=== PATIENT | female | born 1975 | race Caucasian/White ===

== ENCOUNTER 2023-05-01 12:39 | Outpatient (CLI) | payer OTHER, SELFPAY ==
--- NOTE | 2023-05-01 13:20 | CRLHL7_ITS ---
For Patients: As a result of the Century Cures Act, medical imaging exams and procedure reports are released immediately into your electronic medical record. You may view this report before your referring provider. If you have questions, please contact your health care provider. BILATERAL SCREENING MAMMOGRAM WITH COMPUTER-AIDED DETECTION AND TOMOSYNTHESIS TECHNIQUE: CC and MLO views were obtained. These mammographic images have been obtained using full-field digital technique. These mammographic images were interpreted with the benefit of computer-aided detection. Breast Tomosynthesis was used in this interpretation. COMPARISON FILM: 12/20/21. FINDINGS: There are scattered areas of fibroglandular density IMPRESSION: There is no radiographic evidence for malignancy. ASSESSMENT: BI-RADS Category 1: Negative RECOMMENDATION: Routine screening mammogram in 1 year. A lay language report of this examination will be provided to the patient. Corbin Damian M.D. Diagnostic Radiologist [email or web address] Transcribed: 12:13 peron nguyen/Dictated by: Corbin Damian MD @ 05/04/2023 11:13:00 AM (Electronically Signed)
== END 2023-05-01 12:40 | disposition home or self-care (01) ==
LOC: MAMMO 12:41
PROVIDERS: PCP Nurse Practitioner Family; Visit Provider Physician Assistant
DX: Z12.31 Encounter for screening mammogram for malignant neoplasm of breast (principal)
CPT/HCPCS: 77063; 77067

== ENCOUNTER 2024-08-17 01:20 | Emergency (ER) | payer OTHER, SELFPAY ==
--- OUTSIDE RECORDS SUMMARY | 2024-08-17 01:22 | XMS_ITS | Clinical Summary ---
Author Organization [facility] Address [place], [place] [address] Care Team Providers Care Consumer Lender Name Role Phone Pcp, No Primary Care Provider Unavailabl e Allergies Active Allergy Reactions Criticality Noted Date Comments Pepper (Genus Capsicum) Throat Swelling/Closing High 04/04/2019 Medications No known medications Active Problems Problem Noted Date Diagnosed Date Pap smear for cervical cancer screening 11/21/19 22 Overview (01/05/2022): 11/2021 NIL/HPV negative Plan: Pap/HPV due 11/2026 02/19/2018 Overview (05/14/2018): Estimated Date of Delivery: 10/06/18 Patient's last menstrual period was 12/30/2017. Last Tdap- 08/01/2010 Last Flu vaccine- 05/13/2018 Glucose (GTT) result- too early No Known Allergies Obstetric History T2 L3 SAB0 TAB0 Ectopic0 Multiple0 Live Births3 # Outcome Date GA Lbr Ricardo/2nd Weight Sex Delivery Anes PTL Lv 5 Current 4 Term 06/12/07 39w0d 2.72 kg (6 lb) F PJ 3 Term 08/26/02 40w0d 3.18 kg (7 lb) M PJ 2 07/23/99 26w0d DEC 1 Create lab flowsheet for OB labs- Component Latest Ref Rng & Units 02/14/2018 02/14/2018 02/14/2018 4:58 PM 4:58 PM 4:58 PM HEMOGLOBIN 12.0 - 16.0 g/dL 12.4 MCV 80 - 100 fL 94 ANTIBODY SCREEN Negative Negative SPECIMEN EXPIRATION DATE/TIME 02/17/18 23:59 RUBELLA IGG ANTIBODY Positive 1.61 HIV-1/HIV-2 ANTIBODY Non-Reactive Non-Reactive ABORH O Rh Positive HBSAG Nonreactive Nonreactive TREPONEMA PALLIDUM Negative Negative HEMOGLOBIN A1C SCREENING <6.4 % 5.3 Past Medical History: Diagnosis Date Allergic rhinitis, cause unspecified Encounter for supervision of other normal , first trimester 02/14/2018 No Significant Past Medical History Past Surgical History: Procedure Laterality Date SECTION Section, x3 in the [place]; 1 in [place] No data on file. 5th Problems (from 02/14/18 to present) No problems associated with this episode. RYAN Marin.....02/19/2018 7:35 AM Encounter for supervision of other normal , first trimester 02/14/2018 Previous section 02/09/2009 Allergic rhinitis, cause unspecified Resolved Problems Problem Noted Date Diagnosed Date Resolved Date Supervision of other normal 02/09/2009 06/30/2016 Ingrowing nail 04/16/2008 06/30/2016 Encounters Date Type Department Care Team Description 08/14/2024 2:50 PM DOG GROOMER Office Visit [facility] [address] [place] [address] Emelyn Segura, SOFI Viral Syndrome 08/14/2024 Travel from Last 3 Months Immunizations Name Administration Dates Next Due COVID-19 vaccine (Lil Monkey Butt 30mcg/0.3mL) P F, MDV 01/15/2021,12/25/2020 Influenza A (H1N1), Inactivated 05/25/2009 Influenza, IIV3 (Age >=3 years) 05/10/2009 Influenza, IIV4 05/13/2018,06/30/2016 Tdap 08/09/2018,08/01/2010 Family History Medical History Relation Name Comments Diabetes Father Good Health Maternal Grandfather Good Health Maternal Grandmother Hypertension Mother Good Health Paternal Grandfather of old age Unknown Paternal Grandmother Cancer-breast No Family History Cancer-colon No Family History Cancer-ovarian No Family History Relation Name Status Comments Father Maternal Grandfather Maternal Grandmother Mother Paternal Grandfather Paternal Grandmother Social History Tobacco Use Types Packs/Day Years Used Date Smoking Tobacco: Never Smokeless Tobacco: Never Tobacco Cessation:Counseling Given: Yes Alcohol Use Standard Drinks/Week Comments No 0 (1 standard drink = 0.6 oz pur e alcohol) PHQ-2 Answer Date Recorded PHQ-2 Score 4 09/22/2018 Social Connections Answer Date Recorded Frequency of Communication with Friends and Fami ly Not on file 12/20/2021 Comments No Sex and Gender Information Value Date Recorded Sex Assigned at Not on file Legal Sex Female 5:42 AM DOG GROOMER Gender Identity Not on file Sexual Orientation Not on file Occupation Industry Job Start Date Job End Date Not on file Not on file Not on file Not on file Obstetrics History Para Term AB IAB SAB Ectopic Multiple Livin g Live Births 5 3 2 1 0 0 3 3 Date Outcome GA Total Labor Labor/2nd/3rd Weight Sex Type Anes PTL Pj A1 A5 Name Clin 000 26w 0d C-Sec tion Deceas ed Comments: 24-48 ho urs after delivery, questionable abruption in [place]. 003 Term 40w 0d 3.18 kg (7 lb) M C-Sec tion Living Comments:HTN during la bor, Bedrest due to early dilitation 007 Term 39w 0d 2.72 kg (6 lb) F C-Sec tion Living Last Filed Vital Signs Vital Sign Reading Time Taken Comments Blood Pressure 123/66 08/14/2024 3:39 PM DOG GROOMER Pulse 84 08/14/2024 3:39 PM DOG GROOMER Temperature 37.6 C (99.7 F) 08/14/2024 3:39 PM DOG GROOMER Respiratory Rate 20 08/14/2024 3:39 PM DOG GROOMER Oxygen Saturation 97% 08/14/2024 3:39 PM DOG GROOMER Inhaled Oxygen Concentration - - Weight 57.6 kg (126 lb 14.4 oz) 08/14/2024 3:39 PM DOG GROOMER Height 151 cm (4' 11.45) 12/20/2021 3:26 PM CDT Body Mass Index 25.24 12/20/2021 3:26 PM CDT Plan of Treatment Health Maintenance Due Date Last Done Comments Hepatitis C screening for age 18-79 1995 Depression screening for age 12+ 02/19/2019 02/19/2018, 02/19/2018, 02/18/2018, Additional history exists Colonoscopy through age 75 2022 Lipids for age 45-75 2022 06/30/2016, 11/20/19 13 BMI (ht and wt on same day) for age 18+ 12/20/2022 12/20/2021, 04/04/2019, 02/14/2018, Additional history exists Mammogram for age 45-75 12/20/2022 12/20/2021 COVID-19 vaccine series ( season) 2024 01/15/2021, 12/25/2020 Influenza for age 9-49 03/23/2024 8, 06/30/2016, 05/25/2009, Additional history exists Pap test for age 21-65 12/20/2026 , 12/20/2021, 06/30/2016, Additional history exists Tetanus booster 08/09/2028 08/09/2018, 08/01/2010 HIV for age 15-65 Completed 02/14/2018, , 11/01/2006 Tdap Completed 08/09/2018, 08/01/2010 Pneumococcal series for age 6-49 Aged Out No longer eligible based on patient's age to complete this topic Procedures Procedure Name Priority Date/Time Associated Diagnosis Comments STREP A PCR STAT 08/14/2024 4:39 PM DOG GROOMER Sore throat THROAT RAPID STREP A WITH REFLEX STAT 08/14/2024 4:39 PM DOG GROOMER Sore throat XR MAMMO SHAILESH BILAT SCREEN Routine 12/20/2021 4:18 PM CDT Encounter for screening mammogram for malignant neoplasm of breast HPV HIGH RISK Routine 12/20/2021 3:00 PM CDT Screening for cervical cancer ANTI HIV 1/2 Routine 02/14/2018 4:58 PM CDT Encounter for supervision of other normal , first trimester LIPID PANEL W REFLEX MEASURED LDL Routine 06/30/2016 10:45 AM DOG GROOMER Screening for lipid disorders from Last 3 Months or Most Recently Relevant to Health Maintenance Results * STREP A PCR (08/14/2024 4:39 PM DOG GROOMER) GROUP A STREP Negative 08/15/2024 2:28 PM DOG GROOMER [facility] Throat SPECIMEN FROM THROAT / Unknown Non-Blood / Unknown 08/14/2024 4:39 PM DOG GROOMER 08/14/2024 5:20 PM DOG GROOMER us Emelyn Segura NP MICROBIOLOGY Final Result Performing Organization Address City/[facility]/ZIP Co de Phone Number [facility] [address] [place] [address], * THROAT RAPID STREP A WITH REFLEX (08/14/2024 4:39 PM DOG GROOMER) STREP A ANTIGEN Negative 08/14/2024 5:21 PM DOG GROOMER [facility] Comment:PCR to follow. Throat SPECIMEN FROM THROAT / Unknown Non-Blood / Unknown 08/14/2024 4:39 PM DOG GROOMER 08/14/2024 5:05 PM DOG GROOMER us Emelyn Segura NP MICROBIOLOGY Final Result [facility] [address], [place] [id number] * XR MAMMO SHAILESH BILAT SCREEN (12/20/2021 4:18 PM CDT) Anatomical Region Laterality Modality BREASTS, Breast Left, Breast Right Bilateral Mammography Impressions 12/21/2021 1:15 PM CDT There is no radiographic evidence for malignancy. Recommend annual mammograms. MAMMOGRAM ASSESSMENT: ACR 1 Negative PATIENTS: You will also receive a letter with your examination results in an easy to read format. If you have questions about your results, please contact your referring provider. Narrative 12/21/2021 1:15 PM CDT For Patients: As a result of the Century Cures Act, medical imaging exams and procedure reports are released immediately into your electronic medical record. You may view this report before your referring provider. If you have questions, please contact your health care provider. XR MAMMO SHAILESH BILAT SCREEN [[id number]] CLINICAL HISTORY: This is an asymptomatic 46 y.o. patient. INDICATION FOR EXAM: Mammogram Screening. TECHNIQUE: CC & MLO views were obtained. This study was evaluated with the assistance of Computer-Aided Detection. Breast Tomosynthesis was used in interpretation. COMPARISON FILM: This is a baseline study. FINDINGS: The breasts are heterogeneously dense, which may obscure small masses. There are no dominant masses, suspicious micro calcifications or areas of architectural distortion. [employer] DO MAMMO Final Result * HPV HIGH RISK (12/20/2021 3:00 PM CDT) TYPE 16 Negative Negative 12/22/2021 12:13 PM CDT [facility] TYPE 18 Negative Negative 12/22/2021 12:13 PM CDT [facility] OTHER HIGH RISK TYPES Negative Negative 12/22/2021 12:13 PM CDT [facility] Other (Cervical) Non-Blood / Unknown 12/20/2021 3:00 PM CDT 12/21/2021 7:38 AM CDT Narrative [facility] - 12/22/2021 12:13 PM CDT HPV types 16, 18, 31, 33, 35, 39, 45, 51, 52, 56, 58, 59, 66 and 68 DNA were undetectable or below the pre-set threshold. Methodology: Alison Kimberli 4800 HPV Test Georgiana [email or web address] DO MICROBIOLOGY Final Result [facility] [address] [place] [address], * ANTI HIV 1/2 (02/14/2018 4:58 PM CDT) HIV-1/HIV-2 ANTIBODY Non-Reacti ve Non-Reacti ve 02/15/2018 2:17 PM CDT [facility] Comment:HIV-1 p24 and HIV-1/ HIV-2 Ab not detected. Blood BLOOD SPECIMEN / Unknown Venipuncture / Unknown 02/14/2018 4:58 PM CDT 02/14/2018 4:58 PM CDT us Jennifer Copeland COOK PRESSURE SEND OUTS F inal Result [facility] [address] [place] [address], [place] * LIPID PANEL W REFLEX MEASURED LDL (06/30/2016 10:45 AM DOG GROOMER) CHOLESTEROL,TOTAL 180 100 - 199 mg/dL 06/30/2016 11:18 AM DOG GROOMER [facility] TRIGLYCERIDES 60 <150 mg/dL 06/30/2016 11:18 AM DOG GROOMER [facility] HDL CHOLESTEROL 73 >40 mg/dL 6 11:18 AM DOG GROOMER [facility] NON-HDL CHOLESTEROL 107 <145 mg/dl 06/30/2016 11:18 AM DOG GROOMER [facility] CHOL/HDL RATIO 2.47 <4.50 06/30/2016 11:18 AM DOG GROOMER [facility] LDL CHOLESTEROL 95 <=130 mg/dL 06/30/2016 11:18 AM DOG GROOMER [facility] PATIENT STATUS NOT GIVEN 06/30/2016 11:18 AM DOG GROOMER [facility] Blood BLOOD SPECIMEN / Unknown Venipuncture / Unknown 06/30/2016 10:45 AM DOG GROOMER 06/30/2016 10:45 AM DOG GROOMER us Kitty MONTERROSO CHEMISTRY Final Resu lt [facility] [address] [place] [address], [place] [phone] from Last 3 Months or Most Recently Relevant to Health Maintenance Insurance [employer] ATTN: [place] [address] [employer] Member Subscriber Plan / Payer (Ef fective 2009-Present) Name:Joceline Concepcion Member ID:[id number] Relation to Subscriber:Self Name:Joceline Concepcion Subscriber ID:[id number] Payer ID:Not on file Group ID:Not on file Type:Not on file [id number] Address[address] [address] [place] [address] Care Teams Consumer Lender Relationship Specialty Start Date End Date Pcp, No . PCP - General 01/30/23
--- OUTSIDE RECORDS SUMMARY | 2024-08-17 01:22 | XMS_ITS | Data Portability ---
Author Organization [facility] OFFICE Address [address] [place] [address] [place] [address] Assessment Encounter Date Assessment Date Assessment LastModified by Organization Details LastModified Time 10/30/2023 10/30/2023 - labs (CMP, TSH , CBC, ferritin, Vitamin D) - plan pending results - routine PCP f/u edna Not available 10/30/2023 13:19:35 03/04/2024 03/04/2024 - Rx Vitamin D for fatigue and achiness - add OTC Magnesium Oxide 400mg at HS - discussed low dose Prozac, will consider this and call if she wants to initiate - worried about Pre-DM2, repeat A1C ordered for this fall - mammogram ordered holly Not available 03/04/2024 17:23:32 04/23/2024 04/23/2024 - reviewed lab results - will do mammogram at [facility] on 05/17 - increase iron supplementation - add in Magnesium Oxide, considering Ashwaganda as well (discussed risks/benefits) eber Not available 04/23/2024 17:14:29 Plan of Treatment Reminders Order Date Submit Date Provider Last Modified By Organization Details Last Modified Time Details Appointments None recorde d. Lab lipid panel, serum 2023 024 [email or web address] Not available 4 16:36:06 HbA1c (hemogl obin A1c), blood 2023 024 REBEKA Not available 4 12:37:22 CBC w/ diff 2023 024 [email or web address] Not available 4 16:37:09 surgica l patholo gy study - Mina g pigment ed skin lesion 2023 024 REBEKA Not available 4 12:16:23 ferriti n, serum or plasma 2023 024 REBEKA Not available 4 14:24:20 TSH, serum or plasma 2023 REBEKA Not available 4 15:13:00 CMP, serum or plasma 2023 024 REBEKA Not available 4 14:23:01 CBC 2023 024 REBEKA Not available 4 14:24:55 vitamin D, 25-hydr oxy, total, serum 2023 024 REBEKA Not available 4 14:21:42 vitamin D, 25-hydr oxy, total, serum 2023 024 REBEKA Not available 4 14:33:35 HbA1c (hemogl obin A1c), blood 2023 024 REBEKA Not available 4 15:11:32 CBC w/ diff 2023 024 REBEKA Not available 4 15:10:18 ferriti n, serum or plasma 2023 024 REBEKA Not available 4 15:08:35 Referral None recorde d. Procedures biopsy, skin, punch (PROC) 2023 024 [email or web address] Not available 4 14:45:01 colonos copy procedu re (PROC) 2023 024 [email or web address] Not available 4 15:55:24 Surgeries None recorde d. Imaging MAMMO, screeni ng, bilater al 2023 024 REBEKA Not available 4 15:10:56 Medication Orders ergocal ciferol (vitami n D2) 1,250 mcg (50,000 unit) capsule 2023 024 [facility] [place] [address] [place], [address], 15:42:16 hydroco rtisone 2.5 % topical cream 2023 024 [facility] [place] [address] [place], [address], 17:14:57 Patient TargetsNo targets recorded. Patient InstructionsNo instructions recorded. Reason for Referral None Reported. Results Created Date Observation Date Name Description Value Unit Range Abnormal Flag Note LastModifiedBy Organization Detail LastModifiedTime 09/20/1909/20/2023 HbA1c (hemo globi n A1c), blood A1C 5.5 Not Available [facility] [address] [place], [address], 09/20/2023 12:10:08 09/20/19 24 09/20/2023 HbA1c (hemo globi n A1c), blood hemoglobin 11.9 Not Available [facility] [address] [place], [address], 09/20/2023 12:10:08 09/20/19 24 09/20/2023 HbA1c (hemo globi n A1c), blood cholesterol 179 mg/dL Not Available [facility] [address] [place], [address], 09/20/2023 12:10:08 09/20/19 24 09/20/2023 HbA1c (hemo globi n A1c), blood HDL 70 mg/dL Not Available [facility] [address] [place], [address], 09/20/2023 12:10:08 09/20/19 24 09/20/2023 HbA1c (hemo globi n A1c), blood LDL 91 mg/dL Not Available [facility] [address] [place], [address], 09/20/2023 12:10:08 06/26/2006/24/2024 SHAHRIARO dhaval, courtney rosenberg No observ ation record ed. [email or web address] Not Available 2023 00:46:17 Result Notes None recorded. Problems Name Problem SNOMED Code Status Onset Date Resolution Date Notes Provider Name and Address Organization Details Recorded Time Prediabetes 392579725 Active 2021 JANAY GONZALES [address] [place] [address], [phone], [facility] 2 11:01:08 Vitamin D deficiency 36207778 Active 2021 JANAY GONZALES [address] [place] [address], [address], [facility] 2 11:01:44 Leukopenia 64160041 Active 2021 and mild anemia JANAY GONZALES [address] [place] [address], [address], [facility] 2 11:04:52 Anemia 456203066 Active 2023 Debby Guzman MD [address] [place] [address], [address], [facility] 4 11:18:00 Steatosis of liver 075418233 Active 2023 Debby Guzman MD [address] [place] [address], [address], [facility] 4 10:49:36 Fatigue 98555381 Active 2023 Debby Guzman MD [address] [place] [address], [address], [facility] 4 15:33:46 External hemorrhoids 65869495 Active 2023 Debby Guzman MD [address] [place] [address], [address], [facility] 4 17:02:58 Problem Notes None recorded. Procedures Surgical History Date Name Laterality Status Provider Name and Address Organization Details Recorded Time 4 Punch Biopsy completed MARYLOU ORTEGA MD [address] [place], [address], [facility] 09/20/2023 16:00:33 Imaging Results Imaging Date Name Status LastModified by Organiz ation Details LastModified Time 06/24/2024 MAMMO, screening, bilateral completed [email or web address] Information not available 06/27/2024 00:46:17 Procedure Notes None recorded. Medical Equipment None Reported. Allergies No known drug allergies Medications Name Sig Start Date Stop Date Status Note LastModified by Organization Details LastModified Time vitamin d3 25 mcg (1000 ut) TAKE ONE TABLET BY MOUTH EVERY DAY active Not Available Not Available No t Available hydrocortison e 2.5 % topical cream APPLY A THIN LAYER TO THE AFFECTED AREA(S) TOPICALLY TWICE A DAY active Not Available Not Available No t Available ergocalcifero l (vitamin D2) 1,250 mcg (50,000 unit) capsule TAKE ONE CAPSULE BY MOUTH EVERY WEEK DIRECTED FOR 84 DAYS active Not Available Not Available No t Available polyethylene glycol 3350 17 gram/dose oral powder MIX 17 GRAMS IN LIQUID AND DRINK DAILY DIRECTED active Not Available Not Available No t Available Fiber-Lax 625 mg tablet TAKE ONE TABLET BY MOUTH EVERY DAY DIRECTED active Not Available Not Available No t Available cholecalcifer ol (vitamin D3) 25 mcg (1,000 unit) tablet Take 1 tablet every day by oral route. 2022 active Not Available Not Available Not Avai lable ferrous gluconate 324 mg (38 mg iron) tablet TAKE ONE TABLET BY MOUTH EVERY OTHER DAY active Not Available Not Available No t Available tranexamic acid 650 mg tablet Take 2 tablets 3 times a day by oral route. 2022 active Not Available Not Available Not Avai lable Vitals Date Recorded Body height Body mass index (BMI) Body weight Respiratory rate Body temperature Oxygen saturation Oxygen saturation in Arterial blood by Pulse oximetry Heart rate Systolic blood pressure Diastolic blood pressure Provider Name and Address Organization Details Last Updated DateTime 4 154.94 cm 23.5 kg/m2 03684.2 5 g 22 /min 97.1 [degF] 99 % 99 % 60 /min 123 mm[Hg] 80 mm[Hg] Kalli Long [facility] 10:43:37 Date Recorded Body height Body mass index (BMI) Body weight Respiratory rate Oxygen saturation Oxygen saturation in Arterial blood by Pulse oximetry Body temperature Heart rate Systolic blood pressure Diastolic blood pressure Provider Name and Address Organization Details Last Updated DateTime 154.94 cm 23.7 kg/m2 07183.7 6 g 22 /min 99 % 99 % 97.1 [degF] 54 /min 114 mm[Hg] 67 mm[Hg] Kalli Long [facility] 14:57:15 Date Recorded Body height Body mass index (BMI) Body weight Provider Name and Address Organization Details Last Updated DateTime 10/30/2023 154.94 cm 23.2 kg/m2 96839.5 g Debby Guzman MD [address] [place], [address], [facility] 10/30/2023 13:14:35 Date Recorded Body height Body mass index (BMI) Body weight Provider Name and Address Organization Details Last Updated DateTime 03/04/2024 154.94 cm 23.6 kg/m2 57511.97 g Debby Guzman MD [address] [place], [address], [facility] 03/04/2024 15:15:11 Date Recorded Body height Provider Name an d Address Organization Details Last Updated DateTime 04/23/2024 154.94 cm Debby Guzman MD [address] [place], [address], [facility] 04/23/2024 17:01:32 Social History Question Answer Notes LastModified by Organizat ion Details LastModified Time Tobacco Smoking Status Never Smoker KYLER RILEY ANP-BC [address] [place], [address], [facility] 03/29/2022 12:26:47 What Is Your Level Of Alcohol Consumption? None Information not available 03/29/2022 Do You Use Any Illicit Or Recreational Drugs? No Information not available 03/29/2022 Do You Or Have You Ever Used Any Other Forms Of Tobacco Or Nicotine? No Information not available 03/29/2022 Sex: Unknown Functional Status Question Answer Note LastModified by Organizat ion Details LastModified Time What is your exercise level? Moderate Does triny 4 times/week beatrice Information not available 03/29/2022 Mental Status None recorded. Family History Relationship Description Onset Age of this Age Resolved Age Notes LastModified by Organization Details LastModified Time Father Diabetes mellitus [email or web address] Not available 2021 12:25:54 Mother Hypertensive disorder [email or web address] Not available 2021 12:26:16 Medical History No medical history recorded. Gynecological History Statement/Question Response Current Control Method Condoms Date of LMP 08/12/2022 Obstetrics History GPAL:G 5 P 4 1 0 0 Type Value Full Term 4 Premature 1 Total 5 Past Encounters Encounter ID Performer Location Encounter Start Date Encounter Closed Date Diagnosis/Indication Diagnosis SNOMED-CT Code Diagnosis ICD10 Code Diagnosis Note [id number] Ileana Gusman [facility] [address] [place] [address] 01/07/2020 14:23:35 01/07/2020 14:25:31 [id number] John Hess [facility] [address] [place] [address] 12/08/2020 20:29:05 12/08/2020 22:03:08 COVID-19 [id number] U07.1 [id number] JANAY GONZALES [facility] [address] [place] [address] 03/29/2022 11:58:56 03/29/2022 13:10:05 Fatigue 41909101 R53.83 Will check CBC, TSH todayDiffe rential broad, nothing concerning on physical exam todayAdvis ed continued monitoring Trial earlier bedtime to increase number of hours of sleepF/U 1 month to reassess Adult heal th examination 775766566 R53.83 DM screen: A1C pendingLip id, CMP also pendingF/U accordingl yNo significan t LE edema note; advised to continue monitor. If this is persisting can reassess. Advised limited salt intake, continue to have regularly water intake [id number] [facility] [address] [place] [address] 05/04/2022 10:37:01 05/04/2022 15:02:07 Prediabetes 636349093 R73.03 Discussed dx and opportunit y to make changes to prevent progressio n to DM.She is agreeable to referral to [facility] has been making reductions in diet; is working on cutting out bakery items Vitamin D deficiency 347 93398 E55.9 Vitamin D <13. ERgocalcif zac weekly x6 months Leukopenia 91323876 D72. 819 Mild and mild anemia. No baseline. Will reassess in 2 months for temporal trend; and check peripheral smear. Anemia 308449784 D64.9 Also advised MVI [id number] KYLER RILEY, [facility] [address] [facility] [place] [address] 07/11/2022 13:29:28 07/11/2022 15:54:49 Vitamin D deficiency 16009326 E55.9 Energy has significan tly improved. Is also drinking 5-6 glasses of water dailly Vitamin D was <13. ERgocalcif zac weekly x6 months---- has taken 3 months worth. Advised obtaining refill which is available in the pharmacy. Leukopenia 73243400 D72. 819 w/hemoglob in (bicytopen ia). Both are a little worse. Peripheral smear was unremarkab le. Retics low end of normal. Will do additional testing. Will repeat CBC in another 2 months (too soon with this round of labs). We reviewed possible causes, including ethnicity and family history. No baseline. Pt has not been drinking alcohol. No sx of infection. Anemia 651386039 D64.9 Also advised MVI. Suspect menorrhagi a and may need Iron supp, but will test to be sure. Prediabetes 432093372 R7 3.03 Pt has made impressive diet changes. A1C improved from 5.87-> 5.36%. She states diet is a little hard to follow. We discussed moderating diet (versus large amounts of carbs at one time); additional ly discussed ice cream over candy, cookies, cakes. Given dramatic change in A1c and outstandin g diet, suspect this as cause of wt loss. Headache 38200229 R51.9 1) No SNOOP sx, but advised ER if sx worsen.2) Get vision test and wear correctie lens3) If h/a don't resolve but are not worsening, advised clinic recheck for further etiology determinat ion. [id number] [facility] [address] [facility] [address] 08/24/2022 10:31:31 08/24/2022 11:42:27 Iron deficiency anemia 36666534 D50.9 d/t menorrhagi a. Worsened 11.6->10.9 despite MVINo other causes elicited despite associated mild leucopenia (unremarka ble peripheral smear, nml B12, folate, HIV, LDH, FOBT, haptoglobi n, ESR).MVI w/iron insufficie ntPt has tried mirena IUD in the past but felt it was horrible ; she is not interested in other hormonal options.We discussed menopause average age and often irregular course.Dis cussed option of self-pay option to [facility], but she declines.D iscussed ibuprofen, transexemi c acid options. She prefers to trial traexamic acid at this time. Good Rx coupon to be provided.P rovided a list of iron-forti fied foods in [place].nT rial iron every other day in addition to MVI. Discussed every other day usage, expectatio n of darker stools, and potential constipati on.F/U 3 months Fatigue 78019778 R53.83 Improved with Vit D supplement ationOffer ed lower daily maintenanc e dose Intentiona l weight loss 120628349 R63.8 Pt has cut back on breads d/t pre-DM diagnosis. A1c improved significan tly. Vitamin D deficiency 347 11407 E55.9 Energy has significan tly improved. Transition to low-dose daily medication once complete with weekly dosing. She repeated back and verbalized undestandi ng. Menorrhagia 261810013 N9 2.0 Trial of tranexamic acid. Instructio ns and side effects reviewed; instructio ns provided in [place] [id number] JANAY GONZALES [facility] OFF[facility] [address] [facility] [place] [address] 12/28/2022 09:55:10 12/28/2022 10:53:39 Vitamin D deficiency 52610869 E55.9 Energy has significan tly improved. Transition to low-dose daily medication once complete with weekly dosing. She repeated back and verbalized undestandi ng. Oligomenorrhea 24127510 N91.5 with associated pelvic pain. Will check pelvic ultrasound for possible culprits; otherwise may be just refugio-menop ausal. Iron defic iency anemia 18141700 D50.9 d/t menorrhagi a. Worsened 11.6->10.9 -)10.7desp ite qod iron, but periods length and heaviness has lessened, so will cont to monitor and she is to cont ironto other causes elicited despite associated mild leucopenia (unremarka ble peripheral smear, nml B12, folate, HIV, LDH, FOBT, haptoglobi n, ESR).Pt has tried mirena IUD in the past but felt it was horrible ; she is not interested in other hormonal options.We discussed menopause average age and often irregular course.Vero pardo provided a list of iron-forti fied foods in [place].nL ab f/u in 4 months Constipation 33501446 K5 9.00 Prediabetes 817137422 R7 3.03 Pt has made impressive diet changes. A1C improved from 5.87-> 5.36%. She actually no longer She states diet is a little hard to follow. We discussed moderating diet (versus large amounts of carbs at one time); additional ly discussed ice cream over candy, cookies, cakes. Given dramatic change in A1c and outstandin g diet, suspect this as cause of wt loss. [id number] MD KILLIAN LarsonMAUDE [place] OFF[facility] [address] [facility] [place] [address] 09/06/2023 10:33:43 09/06/2023 12:08:34 Anemia 465597617 D64.9 Prediabetes 013107602 R7 3.03 [id number] [facility] [address] [facility] [place] [address] 09/20/2023 14:42:49 09/20/2023 16:06:35 Change in skin lesion 368804037 L98.9 given change in appearance and atypical feature biopsy performed [id number] MD KILLIAN LarsonMAUDE [place] [facility] [address] [place] [address] 10/30/2023 09:58:11 10/30/2023 10:55:38 Anemia 708468382 D64.9 - microcytic , most likely related to menorrhagi a given previous workup (2021)- also has fatty liver disease, due for labs to followup Steatosis of liver 1007 K76.0 Fatigue 01784093 R53.83 Weight gain 7504441 R63. 5 [id number] MD KAVYA [facility] OFFICE [address] [place] [address] 03/04/2024 15:02:51 03/04/2024 15:43:04 Screening mammography 95413703 Z12.31 Vitamin D deficiency 347 35620 E55.9 Anemia 594227949 D64.9 - microcytic , most likely related to menorrhagi a given previous workup (2021)- also has fatty liver disease, due for labs to followup Prediabetes 457758040 R7 3.03 [id number] MD KILLIAN LarsonMAUDE [place] OFF[facility] [address] [place] [address] 04/23/2024 16:30:09 04/23/2024 17:28:02 External hemorrhoids 17280475 K64.4 - intermitte ntly bothersome , per patient- nonbleedin g. Declined exam 04/23/24 Anemia 675309068 D64.9 - microcytic /normocyti c, most likely related to menorrhagi a given previous workup (2021)- ferritin 6.0 in 03/2024, will increase iron supplement ation to BID- has never had a colonoscop y, will ask for patient to be added to [employer] 2024 schedule Prediabetes 653027439 R7 3.03 - A1C stable at 5.5 Health Concerns Section Related Observation LastModified by Organization Detai ls LastModified Time None Recorded Concern Status LastModified by Organization Details LastModified Time None Recorded Advance Directives Directive None Recorded Payers Encounter Date Sequence Insurance Name Policy Number Policy Grubbs Covered Member ID Grubbs Member ID Guarantor Name 09/06/2023 SLIDING FEE SCHEDULE - DISCOUNT Joceline Young 09/20/2023 SLIDING FEE SCHEDULE - DISCOUNT Rubrick Young 10/30/2023 SLIDING FEE SCHEDULE - DISCOUNT Rublancela Lan Young 03/04/2024 SLIDING FEE SCHEDULE - DISCOUNT Rublancela Lan Young 04/23/2024 SLIDING FEE SCHEDULE - DISCOUNT Rubrick Young Notes Date Note Type Note Provider Name and Address Organization Details Recorded Time 09/06/2023 text/html Sandra is in for followup.She has known anemia 2/2 menorrhagia, due for f/u CBC. No interest in OCPs or IUD for menorrhagia management.Also has h/o pre-DM2, due for repeat A1C. Has gained a few pounds and worried about this.Having some hair loss, thinks this is related to the anemia.No other concerns today. Debby Guzman MD [address] [place], [address], [facility] 09/06/2023 13:19:12 09/20/2023 text/html 48 yo female her for biopsy R hand skin lesion. Patient not certain when she first noticed it - thinks in the past 6-12 months . Lesion has gotten bigger and darker than when she first noticed it. No past hx skin cancers. Has other moles but they look different. Noticed a darkish similar spot on inner L wrist in past few months.No family hx of skin cancer All: no known past reactions to lidocaine MARYLOU ORTEGA MD [address] [place], [address], [facility] 09/20/2023 16:02:42 10/30/2023 text/html Sandra is in for followup.She has persistent fatigue, known h/o anemia 2/2 menorrhagia. Also notes weight gain.She is taking iron QOD given nausea. Intolerant of OCPs 2/2 headache. Still having monthly menses, heavy x4 days.We reviewed recent A1C (5.5) Debby Guzman MD [address] [place], [address], [facility] 10/30/2023 13:19:53 03/04/2024 text/html Sandra is in for followup, and has [facility] paperwork for her mammogram. UTD on pap.No breast concerns. Issues discussed:- persistent fatigue with concerns of weight gain (weight stable since 08/2023), known history of anemia with h/o menorrhagia. Recent Hgb and TSH normal (October 2023) but Vit D was 17. Would like to supplement with this. Has also had hair loss and generalized malaise. Refugio-menopausal, admits she could have anhedonia. Would like to hold off on any antidepressives at this time - cut her hand on a can about one month ago, never got infected but would like a updated TDAP. Discussed Public Health as best option - intermittent aching of B shoulders, occasional hand cramps. No trauma Debby Guzman MD [address] [place], [address], [facility] 03/04/2024 17:24:04 04/23/2024 text/html Rubicela is in f or f/u.Recent labs reviewed. Hgb 11.5, Ferritin 6.0Continues to have fatigue, intermittent anxiety and achiness.Would prefer natural alternatives to treatment which were discussed today. Debby Guzman MD [address] [place], [address], [facility] 04/23/2024 17:15:04 OBGyn Episode No OBEpisode recorded.
[2024-08-17 01:51] VITALS: BP 126/78; PULSE 97; RESP 18; TEMP 37.9; O2SAT 95; BMI 22.7
[2024-08-17 02:32] VITALS: TEMP 37.9
[2024-08-17] MEDS: ONDANSETRON 2 MG/ML inj 4 MG IVP (02:32)
[2024-08-17] MEDS: KETOROLAC 15 MG/ML inj IVP (02:32)
[2024-08-17 03:05] LABS: PCR FLU A POSITIVE PCR FLU A (Negative); PCR FLU B Negative PCR FLU B (Negative); PCR RSV Negative PCR RSV (Negative); SARS PCR* Negative SARS-CoV-2 (Negative)
[2024-08-17] MEDS: 0.9 % SODIUM CHLORIDE 1000 ml 1,000 ML IV (03:12)
--- OUTSIDE RECORDS SUMMARY | 2024-08-17 03:27 | XMS_ITS | Clinical Summary ---
Author Organization [employer] [facility] Address [place], [place] [address] Care Team Providers Care Communication Manager Name Role Phone Pcp, No Primary Care [...] Department Care Team Description 08/14/2024 2:50 PM LICENSING COORDINATOR Office Visit [facility] [address] [place] [address] Emelyn Segura, SOFI Viral Syndrome 08/14/2024 Travel from Last 3 Months Immunizations Name Administration Dates Next Due COVID-19 vaccine (Vaccibody 30mcg/0.3mL) P F, MDV 01/15/2021,12/25/2020 Influenza A [...] on file Legal Sex Female 5:42 AM LICENSING COORDINATOR Gender Identity Not on file Sexual Orientation [...] Comments Blood Pressure 123/66 08/14/2024 3:39 PM LICENSING COORDINATOR Pulse 84 08/14/2024 3:39 PM LICENSING COORDINATOR Temperature 37.6 C (99.7 F) 08/14/2024 3:39 PM LICENSING COORDINATOR Respiratory Rate 20 08/14/2024 3:39 PM LICENSING COORDINATOR Oxygen Saturation 97% 08/14/2024 3:39 PM LICENSING COORDINATOR Inhaled Oxygen Concentration - - Weight 57.6 kg (126 lb 14.4 oz) 08/14/2024 3:39 PM LICENSING COORDINATOR Height 151 cm (4' 11.45) 12/20/2021 3:26 [...] STREP A PCR STAT 08/14/2024 4:39 PM LICENSING COORDINATOR Sore throat THROAT RAPID STREP A WITH REFLEX STAT 08/14/2024 4:39 PM LICENSING COORDINATOR Sore throat XR MAMMO SHAILESH BILAT SCREEN Routine 12/20/2021 4:18 PM CDT Encounter for screening mammogram for malignant neoplasm of breast HPV HIGH RISK Routine 12/20/2021 3:00 PM CDT Screening for cervical cancer ANTI HIV 1/2 Routine 02/14/2018 4:58 PM CDT Encounter for supervision of other normal , first trimester LIPID PANEL W REFLEX MEASURED LDL Routine 06/30/2016 10:45 AM LICENSING COORDINATOR Screening for lipid disorders from Last 3 Months or Most Recently Relevant to Health Maintenance Results * STREP A PCR (08/14/2024 4:39 PM LICENSING COORDINATOR) GROUP A STREP Negative 08/15/2024 2:28 PM LICENSING COORDINATOR [facility] Throat SPECIMEN FROM THROAT / Unknown Non-Blood / Unknown 08/14/2024 4:39 PM LICENSING COORDINATOR 08/14/2024 5:20 PM LICENSING COORDINATOR us Emelyn Segura NP MICROBIOLOGY Final Result Performing Organization Address City/[facility]/ZIP Co de Phone Number [facility] [address] [place] [address], * THROAT RAPID STREP A WITH REFLEX (08/14/2024 4:39 PM LICENSING COORDINATOR) STREP A ANTIGEN Negative 08/14/2024 5:21 PM LICENSING COORDINATOR [facility] Comment:PCR to follow. Throat SPECIMEN FROM THROAT / Unknown Non-Blood / Unknown 08/14/2024 4:39 PM LICENSING COORDINATOR 08/14/2024 5:05 PM LICENSING COORDINATOR us Emelyn Segura NP MICROBIOLOGY Final Result [facility] [address], [place] [id number] * XR MAMMO SHAILESH BILAT SCREEN (12/20/2021 [...] care provider. XR MAMMO SHAILESH BILAT SCREEN [[id number]] CLINICAL HISTORY: This is an asymptomatic 46 [...] micro calcifications or areas of architectural distortion. [employer] [place] ABra DO MAMMO Final Result * HPV HIGH RISK (12/20/2021 3:00 PM CDT) TYPE 16 Negative Negative 12/22/2021 12:13 PM CDT [facility] TYPE 18 Negative Negative 12/22/2021 12:13 PM CDT [facility] OTHER HIGH RISK TYPES Negative Negative 12/22/2021 12:13 PM CDT [facility] Other (Cervical) Non-Blood / Unknown 12/20/2021 3:00 PM CDT 12/21/2021 7:38 AM CDT Narrative [facility] - 12/22/2021 12:13 PM CDT HPV types 16, 18, 31, 33, 35, 39, 45, 51, 52, 56, 58, 59, 66 and 68 DNA were undetectable or below the pre-set threshold. Methodology: Alison Kimberli 4800 HPV Test Georgiana Ploongeqra DO MICROBIOLOGY Final Result [facility] [address] [place] [address], * ANTI HIV 1/2 (02/14/2018 4:58 PM CDT) HIV-1/HIV-2 ANTIBODY Non-Reacti ve Non-Reacti ve 02/15/2018 2:17 PM CDT [facility] Comment:HIV-1 p24 and HIV-1/ HIV-2 Ab not detected. Blood BLOOD SPECIMEN / Unknown Venipuncture / Unknown 02/14/2018 4:58 PM CDT 02/14/2018 4:58 PM CDT us Jennifer Copeland SCIENTIFIC SYSTEMS ANALYST SEND OUTS F inal Result [facility] [address] [place] [address], [place] * LIPID PANEL W REFLEX MEASURED LDL (06/30/2016 10:45 AM LICENSING COORDINATOR) CHOLESTEROL,TOTAL 180 100 - 199 mg/dL 06/30/2016 11:18 AM LICENSING COORDINATOR [facility] TRIGLYCERIDES 60 <150 mg/dL 06/30/2016 11:18 AM LICENSING COORDINATOR [facility] HDL CHOLESTEROL 73 >40 mg/dL 6 11:18 AM LICENSING COORDINATOR [facility] NON-HDL CHOLESTEROL 107 <145 mg/dl 06/30/2016 11:18 AM LICENSING COORDINATOR [facility] CHOL/HDL RATIO 2.47 <4.50 06/30/2016 11:18 AM LICENSING COORDINATOR [facility] LDL CHOLESTEROL 95 <=130 mg/dL 06/30/2016 11:18 AM LICENSING COORDINATOR [facility] PATIENT STATUS NOT GIVEN 06/30/2016 11:18 AM LICENSING COORDINATOR [facility] Blood BLOOD SPECIMEN / Unknown Venipuncture / Unknown 06/30/2016 10:45 AM LICENSING COORDINATOR 06/30/2016 10:45 AM LICENSING COORDINATOR us Kitty MONTERROSO CHEMISTRY Final Resu lt [facility] [address] [place] [address], [place] [phone] from Last 3 Months or Most Recently Relevant to Health Maintenance Insurance [employer] ATTN: [place] [address] [employer] Member Subscriber Plan / Payer (Ef fective 2009-Present) Name:Joceline Concepcion Member ID:[id number] Relation to Subscriber:Self Name:Joceline Concepcion Subscriber ID:[id number] Payer ID:Not on file Group ID:Not on file Type:Not on file [id number] Address: [address] [place] [address] Care Teams Communication Manager Relationship Specialty Start Date End Date Pcp, No . PCP - General 01/30/23
[2024-08-17 03:31] LABS: Basophils Absolute Auto 0.01 K/uL (0.00-0.30); Basophils Percent Auto 0.1 % (0.0-3.0); Hematocrit 34.7 % (33.0-51.0); Hemoglobin* 11.3 gm/dL (12.0-16.0); Immature Granulocytes Abs Auto 0.05 K/uL (0.00-0.30); Immature Granulocytes Pct Auto 0.7 %; Lymphocytes Percent Auto 5.8 % (20-44); Mean Corpuscular HGB Conc 33 gm/dL (32-36); Mean Corpuscular Hemoglobin 29 pg (26-34); Mean Corpuscular Volume 90 fL (80-100); Monocytes Percent Auto 1.7 % (0.0-11.0); Neutrophils Percent Auto 91.7 % (42.0-72.0); Platelet Count* 207 K/uL (140-440); Red Blood Count 3.87 m/uL (4.00-5.20); White Blood Count* 7.45 K/uL (4.50-11.00)
[2024-08-17 03:33] VITALS: TEMP 37.5
[2024-08-17 03:42] LABS: Albumin* 4.1 g/dL (3.3-5.0); Chloride* 105 mmol/L (96-114); Sodium* 137 mmol/L (135-149)
[2024-08-17 03:43] LABS: Potassium* 3.9 mmol/L (3.6-5.1)
[2024-08-17 03:45] LABS: Creatinine* 0.6 mg/dL (0.5-1.5); Est. Creatinine Clearance* 91.68; Estimated Glomerular Filt Rate 111 ml/min
[2024-08-17 03:46] LABS: Alanine Aminotransferase* 17 U/L (4-35); Alkaline Phosphatase* 55 U/L (40-150); Anion Gap 11 mEq/L (7-15); Aspartate Amino Transferase* 28 U/L (12-35); Bilirubin Total* 0.3 mg/dL (0.1-1.5); Blood Urea Nitrogen* 18 mg/dL (5-24); Carbon Dioxide* 21 mmol/L (20-32); Glucose* 141 mg/dL (60-115); Lipase* 48 U/L (23-300); Slide Review Reflex No; Total Protein* 7.4 g/dL (6.0-8.3)
[2024-08-17 03:47] LABS: Calcium* 8.5 mg/dL (8.4-10.6)
[2024-08-17 04:00] VITALS: BP 118/81; PULSE 84; RESP 16; O2SAT 97
[2024-08-17 04:01] LABS: C Reactive Protein* < 0.5 mg/dL (0.5-1.0); NT Pro B Type NatriureticPept* 20 pg/mL
--- NOTE | 2024-08-17 04:28 | ED_ITS ---
HPI - General Adult General Chief complaint: Fever Stated complaint: fever Time Seen by Provider: 08/17/24 01:50 Source: patient and family Mode of arrival: ambulatory Limitations: language barrier ([employer] used for interview in all discussion) History of Present Illness HPI narrative: 49-year-old female presents the emergency department with 8 days of initially mild illness, worsening over the past couple of days. Patient reported sore throat that started 6-7 days ago, increasing headache over the past few days, body aches, fevers, chills and fatigue. Tried taking ibuprofen briefly 1 time yesterday with temporary limited improvement. Poor appetite but is taking fluids, normal urination. No diarrhea, no vomiting. Child was diagnosed with influenza a few days ago. No history of chronic lung disease, heart disease or other long-term medical complication. Has been told she is prediabetic but does not need to be on medications. Has not tried any other interventions. No severe shortness of breath. Past medical history benign, no prescription meds, allergy to oxycodone. Nonsmoker. ROS notable for the multi systemic symptoms as above, otherwise negative times 12 Related Data Home Medications ?Medication ?Instructions ?Recorded ?Confirmed cholecalciferol (vitamin D3) 10 10 mcg PO QDAY 05/01/23 05/01/23 mcg (400 unit) capsule ferrous sulfate 325 mg (65 mg 325 mg PO QDAY 05/01/23 05/01/23 iron) tablet (Feosol) Allergies Allergy/AdvReac Type Severity Reaction Status Date / Time oxycodone Allergy Intermediate Hives Verified 05/01/23 11:53 PFSH PFS Surgical History History of section ?Z98.891 - History of uterine scar from previous surgery (ICD-10) Family History Mother High blood pressure Father Diabetes Social History Narrative: Patient is Religious; refusal of blood transfusions. [id number] mom Exam Const: Vital Signs, click to edit/add: Vital Signs - 24 hr 08/17/24 01:51 08/17/24 02:32 08/17/24 03:33 Temperature 100.3 F H 100.3 F H 99.5 F Pulse Rate [Pulse Oximeter] 97 Respiratory Rate 18 Blood Pressure [Ri ght Upper Arm] 126/78 Pulse Oximetry 95 Oxygen Delivery Me thod Room Air Documenting provider has reviewed patient's vital signs: yes Common normals: no apparent distress and alert General appearance: cooperative Other: Appears mildly ill, but no pallor, diaphoresis or signs of complication. HENMT: Common normals: normocephalic, nasal mucous membranes and turbinates normal, moist oral mucous membranes and oropharynx normal Head and scalp: normocephalic Face and sinus: normal facial exam Nose: nasal mucous membranes and turbinates normal Mouth: oral and palatal mucosa normal Eye: Common normals: EOMs intact bilaterally and conjunctivae normal General eye: normal appearance of both eyes Conjunctiva: conjunctiva(e) normal Neck & C-Spine: Common normals: full ROM and no lymphadenopathy General: normal visual inspection Resp: Common normals: normal respiratory effort, no use of accessory muscles and clear to auscultation bilaterally Effort & inspection: able to speak in complete sentences Auscultation: clear to auscultation bilaterally Cardio: Common normals: regular rate, regular rhythm, S1 normal heart sound, S2 normal heart sound and no murmurs Rate: regular rate Rhythm: regular rhythm Heart sounds: S1 normal and S2 normal GI: Common normals: Normal to inspection, nondistended, normoactive bowel sounds present, soft to palpation, non-tender, no hepatosplenomegaly and no masses Palpation: soft and no hepatosplenomegaly Back & Pelvis: Common normals: thoracic and lumbar spine normal to inspection Extremity: Common normals: normal to inspection and no pedal edema Neuro: Sensorium/orientation: alert Speech: speech normal Motor exam: no movement abnormalities noted Psych: Appearance: grossly normal Mood and affect: euthymic mood Insight: insight good Judgement: judgment good Skin: Common normals: no rashes or lesions noted General skin exam: no rashes or lesions noted Course Course ED Course: 49-year-old female with symptoms suspicious for influenza A. Cannot exclude acute cardiac process, pneumonia, sepsis, urinary infection, gallbladder disease, amongst others. Will obtain IV access, give 1 L normal saline, 15 mg of Toradol, 4 of Zofran. Typical labs to look for GI, basic complications and troponin. Await findings. Reevaluation(s) Time of Reevaluation #1: 04:37 Reevaluation #1: Patient feeling better after fluids, Toradol and Zofran. Headache has improved quite a bit. Counseled on positive influenza a status. I do think this explains her symptoms. There are not any signs of severe complications. Recommended conservative symptomatic treatment with Tylenol, ibuprofen. She does appear to have been ill for an of days that Tamiflu would not be recommended. Rationale discussed. Alarm symptoms reviewed that would warrant ED presentation. She verbalizes understanding and agreement. Vital Signs Vital signs: Initial Vital Signs Temperature 100.3 F H 08/17/24 01:51 Temperature Source Temporal Artery Scan 08/17/24 01:51 Pulse Rate 97 08/17/24 01:51 Respiratory Rate 18 08/17/24 01:51 Blood Pressure 126/78 08/17/24 01:51 Blood Pressure Mean 94 08/17/24 01:51 Blood Pressure Position Sitting 08/17/24 01:51 Pulse Oximetry 95 08/17/24 01:51 Oxygen Delivery Method Room Air 08/17/24 01:51 Vital Signs Temperature 100.3 F H 08/17/24 01:51 Pulse Rate 97 08/17/24 01:51 Respiratory Rate 18 08/17/24 01:51 Blood Pressure 126/78 08/17/24 01:51 Pulse Oximetry 95 08/17/24 01:51 Oxygen Delivery Method Room Air 08/17/24 01:51 Temperature 99.5 F 08/17/24 03:33 Pulse Rate 97 08/17/24 01:51 Respiratory Rate 18 08/17/24 01:51 Blood Pressure 126/78 08/17/24 01:51 Pulse Oximetry 95 08/17/24 01:51 Oxygen Delivery Method Room Air 08/17/24 01:51 Medications Administered Medications: Discontinued Medications Generic Name Dose Route Start Last Admin Trade Name Freq PRN Reason Stop Dose Admin Acetaminophen 1,000 mg 08/17/24 04:27 08/17/24 04:42 Acetaminophen 500 Mg Tablet PO 08/17/24 04:28 1,000 mg ONCE ONE Administration Sodium Chloride 1,000 mls @ 1,000 mls/hr 08/17/24 03:10 08/17/24 03:53 0.9 % Sodium Chloride 1000 Ml IV 08/17/24 04:09 Infused .Q1H HERIBRETO Infusion Ketorolac Tromethamine 15 mg 08/17/24 02:23 08/17/24 02:32 Ketorolac 15 Mg/Ml Inj IVP 08/17/24 02:24 15 mg ONCE ONE Administration Ondansetron HCl 4 mg 08/17/24 02:23 08/17/24 02:32 Ondansetron 2 Mg/Ml Inj IVP 08/17/24 02:24 4 mg ONCE ONE Administration Medical Decision Making Lab Data Lab results reviewed: Yes I reviewed the patient's lab results Lab results narrative: Labs reassuring. Positive for influenza A as expected. Labs: Lab Results 08/17/24 08/17/24 08/17/24 Range/Units 01:02 02:30 02:56 WBC 7.45 (4.50-11.00) K/uL RBC 3.87 L (4.00-5.20) m/uL Hgb 11.3 L (12.0-16.0) gm/dL Hct 34.7 (33.0-51.0) % MCV 90 (80-100) fL MCH 29 (26-34) pg MCHC 33 (32-36) gm/dL RDW Coeff of Augustin 13.0 (11.5-15.5) % Plt Count 207 (140-440) K/uL Neut % (Auto) 91.7 H (42.0-72.0) % Lymph % (Auto) 5.8 L (20-44) % Ness % (Auto) 1.7 (0.0-11.0) % Eos % (Auto) 0.0 (0.0-7.0) % Baso % (Auto) 0.1 (0.0-3.0) % Neut # (Auto) 6.80 (1.7-7.0) K/uL Lymph # (Auto) 0.40 L (0.90-2.90) K/uL Ness # (Auto) 0.10 (0.00-0.90) K/UL Eos # (Auto) 0.00 (0.00-0.50) K/uL Baso # (Auto) 0.01 (0.00-0.30) K/uL Abs Immat Gran (auto) 0.05 (0.00-0.30) K/uL Imm/Tot Granulo (auto) 0.7 % Sodium 137 (135-149) mmol/L Potassium 3.9 (3.6-5.1) mmol/L Chloride 105 (96-114) mmol/L Carbon Dioxide 21 (20-32) mmol/L Anion Gap 11 (7-15) mEq/L BUN 18 (5-24) mg/dL Creatinine 0.6 (0.5-1.5) mg/dL Estimated Creat Clear 91.68 Estimated GFR 111 ml/min Glucose 141 H (60-115) mg/dL Calcium 8.5 (8.4-10.6) mg/dL Total Bilirubin 0.3 (0.1-1.5) mg/dL AST 28 (12-35) U/L ALT 17 (4-35) U/L Alkaline Phosphatase 55 (40-150) U/L C-Reactive Protein < 0.5 L (0.5-1.0) mg/dL NT-Pro-B Natriuret Pep 20 pg/mL Total Protein 7.4 (6.0-8.3) g/dL Albumin 4.1 (3.3-5.0) g/dL Lipase 48 (23-300) U/L SARS-CoV-2 (PCR) Negative SARS-CoV-2 (Negative) Influenza Type A (PCR) POSITIVE PCR FLU A A (Negative) Influenza Type B (PCR) Negative PCR FLU B (Negative) RSV (PCR) Negative PCR RSV (Negative) POC Troponin I 0.00 L (0.01-0.04) ng/ml Discharge Plan Discharge Clinical Impression: Influenza A Patient Disposition: Home w/ Parent or Adult Condition: Improved Instructions: Influenza (DC) Additional Instructions: As we discussed, your swabs are positive for influenza A. There are no signs of complications with your heart, kidneys or other organs. There are no signs of electrolyte abnormality or dehydration. I am glad that the medicines were somewhat helpful. Antiviral medications will not be useful for you at this point in the illness, they can only be prescribed if you have had symptoms for 2 days or less. I would expect for you to have another 2-3 days of symptoms based on the typical clinical course. You should be doing a more aggressive job at treating her symptoms with [id number] medications at home. I recommend Tylenol 1000 mg every 6 hours. Your given a dose of each of these in the emergency department. Please take more ibuprofen at about 9:00 a.m., more Tylenol at about 11:00 a.m.. If you have severe shortness of breath, persistent vomiting or other signs of complication, you may return to the emergency department. [place] comentamos, jacob hisopos son positivos para influenza A. No hay signos de complicaciones en holcomb coraz?n, ri?ones u otros ?rganos. No hay signos de anomal?a electrol?wilmer o deshidrataci?n. Me alegra que los medicamentos hayan sido de alguna ayuda. Los medicamentos antivirales no te ser?n ?tiles en heather punto de la enfermedad, solo se pueden recetar si has tenido s?ntomas nichelle 2 d?as o menos. Esperar?a que tenga otros 2 o 3 d?as de s?ntomas seg?n el curso cl?jina t?tsering. Deber?a hacer un trabajo m?s agresivo para tratar jacob s?ntomas con medicamentos de venta marie en casa. Recomiendo Tylenol 1000 mg cada 6 horas. Le administrar?n nicole dosis de cada fernando de estos en el departamento de emergencias. [place] m?s ibuprofeno aproximadamente a las 9:00 a. m., m?s Tylenol aproximadamente a las 11:00 a. m. Si tiene dificultad para respirar grave, v?mitos persistentes u otros signos de complicaci?n, puede regresar al departamento de emergencias. Activity Level: Activity as Tolerated Discharge Diet: Regular Prescriptions: No Action cholecalciferol (vitamin D3) 10 mcg (400 unit) capsule 10 mcg PO QDAY ferrous sulfate [Feosol] 325 mg (65 mg iron) tablet 325 mg PO QDAY Follow Up/Referrals: Debby Guzman MD [Primary Care Provider] - Stand Alone Forms: MyHealth Info Instructions
[2024-08-17] MEDS: ACETAMINOPHEN 500 MG TABLET 1000 MG PO (04:42)
== END 2024-08-17 04:51 | disposition home or self-care (01) ==
PROVIDERS: Emergency Provider Family Medicine; PCP Family Medicine
DX: J10.1 Influenza due to other identified influenza virus with other respiratory manifestations (principal)
CPT/HCPCS: 36415; 80053; 81003; 81025; 83690; 83880; 84484; 85025; 86140; 87631; 96374; 96375; 99284; A9270; J1885; J2405; J7030